=== PATIENT | female | born 1965 | race Caucasian/White ===

== ENCOUNTER 2017-09-21 08:16 | Emergency (ER) | payer BC ==
[2017-09-21 08:28] VITALS: TEMP 97.8
--- NOTE | 2017-09-21 08:32 | ED.PDOC ---
History of Present Illness - General Chief Complaint: Skin/Abrasion/Tear Stated Complaint: requesting a tetanus shot Time Seen by Provider: 09/21/17 08:31 Source: patient Exam Limitations: no limitations - History of Present Illness Initial Comments: Juliane Hardy 52 y/o female stated that she stepped on a nail left foot wearing sandals happened at home yesterday.Denies pain but requesting Td shot not UTD. Timing/Duration: yesterday Severity: mild Location: feet - left Improving Factors: nothing Worsening Factors: nothing Associated Symptoms: denies symptoms Allergies/Adverse Reactions: Allergies NO KNOWN ALLERGY Allergy (Verified 09/21/17 08:28) Home Medications: Ambulatory Orders Ciprofloxacin [Cipro] 500 mg PO BID 7 Days #14 tab 09/21/17 Review of Systems - Review of Systems Constitutional: States: no symptoms reported EENTM: States: no symptoms reported Respiratory: States: no symptoms reported Skin: States: see HPI Neurological: States: no symptoms reported All other Systems: Reviewed and Negative, No Change from Baseline Past Medical History (General) - Patient Medical History Hx Asthma: No Hx Cardiac Disorders: No Hx Congestive Heart Failure: No Hx Diabetes: No Hx Gastroesophageal Reflux: No Surgical History: no surgical history - Vaccination History Hx Tetanus, Diphtheria Vaccination: No Hx Influenza Vaccination: No Hx Pneumococcal Vaccination: No - Social History Hx Tobacco Use: Yes Hx Alcohol Use: Yes - occasiona Family Medical History - Family History Mother Family History: Unknown Physical Exam - Physical Exam General Appearance: Alert, Comfortable Eyes, Ears, Nose, Throat Exam: normal ENT inspection Neck: non-tender, supple Cardiovascular/Chest: normal peripheral pulses, regular rate, rhythm, no murmur Respiratory: lungs clear Gastrointestinal/Abdominal: soft Back Exam: normal inspection Extremity: no pedal edema, no calf tenderness Neurologic: alert, oriented x 3 Skin Exam: warm/dry, normal color Skin Problem Location: lower extremities - left foot Skin Character: other - wound puncture,non tender no surrounding erythema Lymphatic: no adenopathy Progress - Progress Progress: 09/21/17 08:40 Vital Signs - 8 hr 09/21/17 08:23 Temperature 97.8 F Pulse Rate [ 81 pulse ox] Respiratory 18 Rate Blood Pressure 109/74 [Right Arm] O2 Sat by Pulse 97 Oximetry Departure - Departure Clinical Impression: Puncture wound of foot, left Qualifiers: Encounter type: initial encounter Qualified Code(s): S91.332A - Puncture wound without foreign body, left foot, initial encounter Time of Disposition: 08:42 Disposition: Discharge to Home or Self Care Condition: Good Departure Forms: ED Discharge - Pt. Copy, Patient Portal Self Enrollment Instructions: DI for Puncture Wound, DI for Wound Infection Prescriptions: Ciprofloxacin [Cipro] 500 mg PO BID 7 Days #14 tab Home Medications: Ambulatory Orders Ciprofloxacin [Cipro] 500 mg PO BID 7 Days #14 tab 09/21/17 Additional Instructions: Follow up with primary Md in [place] as needed 22 September 2017 for wound recheck
[2017-09-21] MEDS ORDERED: TETANUS,DIPHTHERIA,PERTUSSIS 1 EA SYG IM ONE (08:41)
[2017-09-21 09:08] VITALS: BP 106/72; O2SAT 96
== END 2017-09-21 09:07 | disposition home or self-care (01) ==
LOC: ER 08:16
DX: S91.332A Puncture wound without foreign body, left foot, initial encounter (principal); Z23 Encounter for immunization; Z87.891 Personal history of nicotine dependence; W45.0XXA Nail entering through skin, initial encounter; Y92.009 Unspecified place in unspecified non-institutional (private) residence as the place of occurrence of the external cause